=== PATIENT | female | born 1975 ===

== ENCOUNTER 2018-11-23 21:00 | Outpatient (CLI) | payer OTHER ==
[2018-11-23 21:37] VITALS: BP 116/65
[2018-11-23 22:24] LABS: Basophils % (Auto) 0.3 % (0.0-1.8); Eosinophils # (Auto) 0.5 K/mm3 (0.0-0.4); Eosinophils % (Auto) 3.7 % (0.0-4.3); Hematocrit 30.7 % (30.3-42.9); Lymphocytes # (Auto) 2.6 K/mm3 (1.2-5.4); Lymphocytes % (Auto) 18.4 % (13.4-35.0); Mean Corpuscular HGB Conc 32 % (30-34); Mean Corpuscular Volume 74 fl (79-97); Monocytes # (Auto) 1.2 K/mm3 (0.0-0.8); Monocytes % (Auto) 8.2 % (0.0-7.3); Platelet Count 340 K/mm3 (140-440); Red Blood Count 4.16 M/mm3 (3.65-5.03); Red Cell Distribution Width 17.2 % (13.2-15.2)
[2018-11-23 23:08] LABS: Bacteria,Urine 1+ /HPF (Negative); Bilirubin,Urine NEG (Negative); Blood,Urine NEG (Negative); Calcium Oxalate Crystals,Urine 3+; Color,Urine Yellow (Yellow); Mucus,Urine 1+ /HPF; Protein,Urine <15 mg/dL mg/dL (Negative); Urobilinogen,Urine < 2.0 mg/dL (<2.0)
== END 2018-11-23 22:30 | disposition home or self-care (01) ==
LOC: TRG 21:00
PROVIDERS: ATTEND Obstetrics & Gynecology
DX: O26.892 Other specified pregnancy related conditions, second trimester (principal); R10.12 Left upper quadrant pain; R10.9 Unspecified abdominal pain; Z3A.26 26 weeks gestation of pregnancy
CPT/HCPCS: 36415; 81001; 85025

== ENCOUNTER 2019-01-22 00:04 | Outpatient (CLI) | payer SELFPAY ==
[2019-01-22 00:54] VITALS: BP 101/62
--- NOTE | 2019-01-22 02:26 | Ultrasound Report ---
US OB BPP wo non-stress INDICATION: Decreased movements. History of fall. COMPARISON: None available. FINDINGS: A single live intrauterine is seen with a heart rate of 150 bpm. The biophysical profile sc ore is 8/8. IMPRESSION: Single live intrauterine with BPP of 8/8. Signer Name: Mat Lopez MD Signed: 01/22/2019 2:22 AM Workstation Name: [id number]
== END 2019-01-22 02:52 | disposition home or self-care (01) ==
LOC: TRG 00:04
PROVIDERS: ATTEND Obstetrics & Gynecology
DX: O47.03 False labor before 37 completed weeks of gestation, third trimester (principal); Z3A.35 35 weeks gestation of pregnancy
CPT/HCPCS: 59025; 76819

== ENCOUNTER 2019-02-12 09:17 | Inpatient (IN) | payer OTHER ==
[2019-02-12] MEDS ORDERED: BICITRA PO ONE (09:40)
[2019-02-12] MEDS ORDERED: REGLAN IV ONE (09:40)
[2019-02-12] MEDS ORDERED: PEPCID IV ONE (09:40)
[2019-02-12] MEDS ORDERED: LACTATED RINGERS 1,000 ML IV SCH (10:00)
[2019-02-12] MEDS ORDERED: ANCEF/STERILE WATER 2 GM/20 ML 2 GM/20 ML SYRINGE IV NR (10:00)
[2019-02-12] MEDS ORDERED: PITOCin/NS 20 UNIT/1000ML DRIP 20 UNITS/1,000 ML BAG IV SCH ×2 (10:00→14:00)
[2019-02-12 10:40] LABS: Basophils # (Auto) 0.1 K/mm3 (0.0-0.1); Basophils % (Auto) 0.8 % (0.0-1.8); Eosinophils # (Auto) 0.7 K/mm3 (0.0-0.4); Eosinophils % (Auto) 7.7 % (0.0-4.3); Hematocrit 38.8 % (30.3-42.9); Hemoglobin 12.7 gm/dl (10.1-14.3); Lymphocytes % (Auto) 21.2 % (13.4-35.0); Mean Corpuscular HGB Conc 33 % (30-34); Mean Corpuscular Volume 77 fl (79-97); Monocytes # (Auto) 0.7 K/mm3 (0.0-0.8); Monocytes % (Auto) 7.6 % (0.0-7.3); Platelet Count 282 K/mm3 (140-440); Red Blood Count 5.07 M/mm3 (3.65-5.03)
[2019-02-12] MEDS ORDERED: DEXMEDETOMIDINE IV ONE (11:04)
[2019-02-12] MEDS ORDERED: MARCAINE 0.5% INFILTRATI ONE (11:04)
--- NOTE | 2019-02-12 11:04 | Anesthesia Consultation ---
Anesthesia Consult and Med Hx Date of service: 02/12/19 - Airway Anesthetic Teeth Evaluation: Good ROM Head & Neck: Adequate Mental/Hyoid Distance: Adequate Mallampati Class: Class II Intubation Access Assessment: Probably Good - Pulmonary Exam CTA: Yes - Cardiac Exam Cardiac Exam: RRR - Pre-Operative Health Status ASA Pre-Surgery Classification: ASA3 Proposed Anesthetic Plan: Spinal - Pulmonary Hx Asthma: No - Cardiovascular System Hx Hypertension: No - Central Nervous System Hx Seizures: No Hx Psychiatric Problems: No - Endocrine Hx Renal Disease: No Hx Insulin Dependent Diabetes: No Hx Non-Insulin Dependent Diabetes: Yes Hx Hypothyroidism: No Hx Hyperthyroidism: No - Hematic Hx Anemia: No Hx Sickle Cell Disease: No - Other Systems Hx Alcohol Use: No Hx Obesity: Yes
--- NOTE | 2019-02-12 11:05 | Anesthesia Day of Surgery ---
Anesthesia Day of Surgery - Day of Surgery Patient Examined: Yes Patient H&P Reviewed: Yes Patient is NPO: Yes
[2019-02-12] MEDS ORDERED: D5LR 1,000 ML IV ONE (11:34)
--- NOTE | 2019-02-12 11:52 | History and Physical Report ---
History of Present Illness Date of examination: 02/12/19 Date of admission: 02/12/19 09:17 Chief complaint: Here for a primary delivery for breech and macrosomia, History of present illness: Term emilia , diabetic, breech and macrosomia. EFRIAN 02/26/2019. Past History Past Medical History: diabetes - Obstetrical History Expected Date of Delivery: 02/26/19 Actual Gestation: 38 Week(s) 0 Day(s) : 4 Para: 3 Medications and Allergies Allergies Allergy/AdvReac Type Severity Reaction Status Date / Time No Known Allergies Allergy Verified 02/12/19 09:40 Home Medications Medication Instructions Recorded Confirmed Last Taken Type Multivitamin Tablet 11/23/18 11/23/18 10:00 History 1 Active Meds: Active Medications Cefazolin Sodium (Ancef/Sterile Water 2 Gm/20 Ml) 2 gm in 20 mls @ 80 mls/hr IV PREOP NR; Protocol Stop: 02/12/19 23:00 Oxytocin/Sodium Chloride (Pitocin/Ns 20 Unit/1000ml Drip) 20 units in 1,000 mls @ 0 mls/hr IV TITR MELODY Lactated Ringer's (Lactated Ringers) 1,000 mls @ 2,250 mls/hr IV PREOP MELODY Stop: 02/13/19 10:27 Dextrose/Lactated Ringer's (D5lr) 1,000 mls @ 125 mls/hr IV DIRECT MELODY Review of Systems All systems: negative - Vital Signs Vital signs: Vital Signs Pulse BP 70 132/87 02/12/19 10:32 02/12/19 10:32 Temp Pulse Resp BP Pulse Ox 70 132/87 02/12/19 10:32 02/12/19 10:32 - Physical Exam Breasts: Positive: deferred Cardiovascular: Regular rate Lungs: Positive: Clear to auscultation Abdomen: Positive: soft. Negative: tenderness - Obstetrical FHR: category 1 Results Result Diagrams: 02/12/19 Unknown Abnormal lab results 02/12/19 Range/Units Unknown RBC 5.07 H (3.65-5.03) M/mm3 MCV 77 L (79-97) fl MCH 25 L (28-32) pg RDW 23.0 H (13.2-15.2) % [place] % (Auto) 7.6 H (0.0-7.3) % Eos % (Auto) 7.7 H (0.0-4.3) % Eos # 0.7 H (0.0-0.4) K/mm3 All other labs normal. Assessment and Plan - Patient Problems (1) Term Current Visit: Yes Status: Acute (2) Gestational diabetes Current Visit: Yes Status: Acute (3) Breech presentation Current Visit: Yes Status: Acute (4) Macrosomia Current Visit: Yes Status: Acute Plan to address problem: For delivery.
[2019-02-12] MEDS ORDERED: D5LR 1,000 ML IV SCH (12:00)
[2019-02-12] MEDS ORDERED: NACL 0.9% IR ONE (12:10)
[2019-02-12] MEDS ORDERED: WATER FOR IRRIG STERILE IR ONE (12:10)
[2019-02-12] MEDS ORDERED: LACTATED RINGERS 1,000 ML ONE (13:11)
[2019-02-12] MEDS ORDERED: NEO SYNEPHRINE ONE ×2 (13:11)
[2019-02-12] MEDS ORDERED: ZOFRAN ONE (13:11)
[2019-02-12] MEDS ORDERED: ZOFRAN IV PRN (13:40)
[2019-02-12] MEDS ORDERED: LANSINOH TP PRN (13:40)
[2019-02-12] MEDS ORDERED: TYLENOL PO PRN (13:40)
[2019-02-12] MEDS ORDERED: TUCKS PAD TP PRN (13:40)
[2019-02-12] MEDS ORDERED: NARCAN 0.4 MG/1 ML IV PRN (13:40)
--- NOTE | 2019-02-12 13:55 | Operative Report ---
Operative Report Operative Report: Date of surgery: 02/12/2019 Admitting diagnosis: 38 weeks gestation, breech presentation, macrosomia, polyhydramnios. Post operative diagnoses: The same plus anterior placenta previa Procedure: Low segment transverse section Surgeon: C.C.MD Trey Captain [employer]: Deanna Paez CRNA Anesthesia: Spinal block EBL: 1500 mL Complications: None Findings: There was a live baby girl in complete breech. Weight 8 lbs. 13 oz. Apgars 7/8. The placenta was anterior and extended inferior to the uterine incision. There was a copious amount of amniotic fluid which was clear. There was a nuchal cord. Both ovaries and fallopian tubes as well as the uterus were unremarkable and grossly normal structures the greater omentum seen through the Pfannenstiel incision was grossly normal Procedure in detail: The patient was taken to the operating room and given spinal block. She was placed in the straight supine position with a slight left lateral tilt. An indwelling Dc catheter was inserted. The patient was prepped and the abdomen. The drapes were placed. A timeout was done. With the go ahead from the wood casket maker, a Pfannenstiel incision was made. Fascia was divided transversely. The recti abdominis muscle flaps with stripped from the fascia using blunt and sharp dissections. The muscles were in the midline to reach the anterior parietal peritoneum. This was divided. The abdominal access was widened stretching. The bladder blade was applied. The utero vesicle peritoneal flap was divided transversely allowing the bladder to be displaced caudally. The uterine incision was placed over the lower segment transversely. The substance of the placenta was encountered upon entrance into the uterine cavity. The amniotic sac was ruptured with copious clear fluid. The feet of the fetus were identified and brought out through the incision. The ankles were wrapped in blue towels and used for traction to pull the baby out in combination with fundal pressure. After delivering the baby up to the waist line and pelvic girdle was then used for traction to deliver the abdomen and chest up to the shoulder blades. The Loveset maneuver used to deliver the arms. The fetus was then grasped at the ankles and put in an upside down position and continuing fundal pressure delivered the head of the baby through the incision. It was a difficult extraction. The airways were bulb suctioned beginning with the mouth. The umbilical cord was double clamped and divided. The baby was safely transferred to the pediatric team. The placenta was manually removed from the uterine cavity. The uterine cavity was explored and was empty of any placental remnants. The uterine incision was repaired in 3 layers with #1 Vicryl. Hemostasis within the pelvis was excellent. Blood and clots were cleared from the peritoneal cavity before repair in the anterior parietal peritoneum was #1 Vicryl. The fascia was repaired with #1 Vicryl. The Bovie was used to achieve hemostasis within the subcutaneous layer before closing the skin subcuticularly with 4-0 Vicryl. There were no complications. The estimated blood loss was 1500 mL most of which was amniotic fluid. All sponge and instruments counts were correct. The patient tolerated the procedure well and was transferred in very good condition to the recovery room.
[2019-02-12] MEDS ORDERED: SODIUM CHLORIDE FLUSH SYRINGE 10 ML IV SCH (14:00)
[2019-02-12] MEDS ORDERED: NUBAIN IV PRN (14:15)
--- NOTE | 2019-02-12 14:15 | Post Anesthesia Evaluation ---
- Post Anesthesia Evaluation Patient Participated: Yes Airway Patent: Yes Stable Respiratory Function: Yes Nausea/Vomiting: No Temp > 96.8F: Yes Pain Manageable: Yes Adequeate Hydration: Yes Anesthesia Complications: No Block Receding Appropriately: Yes
[2019-02-12] MEDS ORDERED: IBUPROFEN PO SCH (15:00)
[2019-02-12] MEDS ORDERED: TYLENOL PO SCH (15:00)
[2019-02-12] MEDS: TORADOL IV PRN (19:43)
[2019-02-12] MEDS: ANCEF/NS 1 GM/50 ML 1 GM/50 ML BAG IV SCH (21:35)
[2019-02-12] MEDS: MORPHINE IV PRN (23:55)
[2019-02-13] MEDS: TORADOL IV PRN (01:39)
[2019-02-13 02:23] LABS: Hemoglobin 10.8 gm/dl (10.1-14.3)
[2019-02-13] MEDS: ANCEF/NS 1 GM/50 ML 1 GM/50 ML BAG IV SCH (05:20)
[2019-02-13] MEDS: MORPHINE IV PRN (07:11)
[2019-02-13] MEDS: NORCO 5/325 PO PRN ×2 (09:53→22:07)
[2019-02-13] MEDS: IBUPROFEN PO PRN ×2 (09:54→16:19)
[2019-02-13] MEDS: PRENATAL VITAMIN PO SCH (09:54)
[2019-02-13] MEDS: FEOSOL PO SCH (09:54)
--- NOTE | 2019-02-13 17:23 | Progress Note ---
Assessment and Plan A: /postop day 1 S/P primary low transverse section. Anemia secondary to and blood loss. P: Encouraged patient to ambulate. Continue iron supplementation. Subjective - Subjective Date of service: 02/13/19 Principal diagnosis: /postop day 1 S/P primary low transverse section Interval history: /postop day 1 S/P primary low transverse section. Doing well. Passing gas. Voiding without difficulty. Tolerating a regular diet. Ambulating well. Patient denies headache, cough, shortness of breath, chest pain, leg pain, or vaginal bleeding. Patient reports: appetite normal, voiding normally, pain well controlled, flatus, ambulating normally, no dizzy ambulation, no nauseated : doing well Objective - Vital Signs Latest vital signs: Vital Signs Temp Pulse Resp BP Pulse Ox 02/13/19 16:08 99.6 F 75 18 115/69 97 02/13/19 07:30 98.3 F 18 125/71 02/13/19 05:00 98.1 F 80 18 122/72 96 02/13/19 01:39 18 02/12/19 23:53 98.5 F 77 16 122/73 96 02/12/19 21:49 98.1 F 79 16 115/63 96 Intake and Output 02/13/19 02/13/19 02/13/19 07:59 15:59 23:59 Intake Total 120 380 Output Total 600 Balance -480 380 Intake: Oral 380 Intake, Free Water 120 Output: Urine 600 Indwelling Catheter 600 Other: Total, Intake Amount 380 Total, Output Amount 600 # Voids Indwelling Catheter 3 - Exam Cardiovascular: Present: Regular rate, Normal S1, Normal S2, No murmurs Lungs: Present: Clear to auscultation Abdomen: Present: normal appearance, soft, normal bowel sounds. Absent: distention, tenderness, guarding, rigidity Uterus: Present: normal, firm, fundal height below umbilicus. Absent: bogginess, tenderness Extremities: Present: normal. Absent: tenderness, edema Incision: Present: normal, dry, intact, dressed
[2019-02-14] MEDS: IBUPROFEN PO PRN ×2 (02:41→12:57)
[2019-02-14] MEDS: PRENATAL VITAMIN PO SCH (12:57)
[2019-02-14] MEDS: FEOSOL PO SCH (12:57)
[2019-02-14] MEDS: NORCO 5/325 PO PRN ×2 (12:58→21:22)
--- NOTE | 2019-02-14 19:53 | Progress Note ---
Assessment and Plan A: day 2 S/P primary low transverse section. Anemia secondary to and blood loss. P: Continue iron supplementation. Continue ambulation. Subjective - Subjective Date of service: 02/14/19 Principal diagnosis: /postop day 2 S/P primary low transverse section Interval history: /postop day 2 S/P primary low transverse section. Doing well. Passing gas. Voiding without difficulty. Tolerating a regular diet. Ambulating well. Patient denies headache, cough, shortness of breath, chest pain, leg pain, or vaginal bleeding. Patient reports: appetite normal, voiding normally, pain well controlled, flatus, ambulating normally, no dizzy ambulation, no nauseated Stephan: doing well Objective - Vital Signs Latest vital signs: Vital Signs Temp Pulse Resp BP BP Pulse Ox 02/14/19 16:15 97.7 F 72 18 123/47 02/14/19 12:58 20 02/14/19 12:57 18 02/14/19 09:32 98.2 F 73 16 119/76 97 02/14/19 00:00 98.4 F 71 18 112/72 Intake and Output 02/14/19 02/14/19 02/14/19 07:59 15:59 23:59 Intake Total 200 440 Balance 200 440 Intake: Oral 200 440 Other: Total, Intake Amount 200 120 # Voids Void 2 - Exam Cardiovascular: Present: Regular rate, Normal S1, Normal S2 Lungs: Present: Clear to auscultation Abdomen: Present: normal appearance, soft. Absent: distention, tenderness, guarding, rigidity Uterus: Present: normal, firm, fundal height below umbilicus. Absent: bogginess, tenderness Extremities: Present: normal. Absent: tenderness, edema Incision: Present: normal, dry, intact, dressed
[2019-02-15] MEDS: NORCO 5/325 PO PRN (04:20)
[2019-02-15] MEDS: FEOSOL PO SCH (08:29)
[2019-02-15] MEDS: IBUPROFEN PO PRN (08:30)
[2019-02-15] MEDS: PRENATAL VITAMIN PO SCH (08:30)
[2019-02-15 10:22] VITALS: BP 128/77
--- NOTE | 2019-02-15 10:26 | Progress Note ---
Assessment and Plan - Patient Problems (1) S/P primary low transverse Current Visit: Yes Status: Acute Plan to address problem: POD 3 - stable Discharge to home today Follow up at [facility] as needed or in 1 week for incision check (2) Gestational diabetes Current Visit: Yes Status: Acute Qualifiers: Trimester: third trimester Plan to address problem: Blood glucose controlled Subjective - Subjective Date of service: 02/15/19 Principal diagnosis: POD #3; s/p Primary LTCS Interval history: see H&P, Operative Report, PP/DIRECTOR OF ENGINEERING Progress Notes Patient reports: appetite normal, voiding normally, pain well controlled, flatus, bowel movement, ambulating normally, no dizzy ambulation : doing well Objective - Vital Signs Latest vital signs: Vital Signs Temp Pulse Resp BP BP Pulse Ox 02/15/19 10:07 97.9 F 81 18 128/77 97 02/15/19 05:20 18 02/15/19 04:20 18 02/15/19 00:33 97.8 F 76 16 121/69 96 02/14/19 22:22 18 02/14/19 21:22 18 02/14/19 16:15 97.7 F 72 18 123/47 02/14/19 12:58 20 02/14/19 12:57 18 Intake and Output 02/14/19 02/15/19 02/15/19 23:59 07:59 15:59 Intake Total 440 Balance 440 Intake: Oral 440 Other: Total, Intake Amount 120 # Voids Void 2 3 - Exam Cardiovascular: Present: Regular rate Lungs: Present: Clear to auscultation Abdomen: Present: normal appearance, soft Vulva: both: normal Uterus: Present: normal, firm, fundal height below umbilicus Extremities: Present: normal Incision: Present: normal, dry, intact, other (steri strips in place) Comments: scant lochia
--- NOTE | 2019-02-15 10:32 | Discharge Summary ---
Providers - Providers Date of Admission: 02/12/19 09:17 Date of discharge: 02/15/19 Attending physician: HOLDEN NAVAS MD Primary care physician: HOLDEN NAVAS MD Hospitalization Reason for admission: section, IUP at term Delivery: Procedure: primary low transverse Episiotomy: none Laceration: none Incision: normal, dry, intact, other (steri strips in place) Other procedures: none complications: none Discharge diagnosis: IUP at term delivered [place] baby: female Hospital course: Uncomplicated Condition at discharge: Stable Disposition: DC-01 TO HOME OR SELFCARE - Discharge Diagnoses (1) S/P primary low transverse Status: Acute (2) Gestational diabetes Status: Acute Qualifiers: Trimester: third trimester Plan - Discharge Medications Prescriptions: Ibuprofen [Motrin 800 MG tab] 800 mg PO Q6H PRN #30 tablet PRN Reason: Pain, Mild (1-3) HYDROcodone/APAP 10-325 [[place] 10/325] 1 - 2 each PO Q6HR PRN 7 Days #30 tablet PRN Reason: Pain - Provider Discharge Summary Activity: routine, no sex for 6 weeks, no heavy lifting 4 weeks, no strenuous exercise Diet: routine Instructions: routine Additional instructions: [] Smoking cessation referral if applicable(refer to patient education folder for contact #) [] Refer to [facility] Booklet Call your doctor immediately for: * Fever > 100.5 * Heavy vaginal bleeding ( >1 pad per hour) * Severe persistent headache * Shortness of breath * Reddened, hot, painful area to leg or breast * Drainage or odor from incision. * Keep incision clean and dry at all times and follow doctor's instructions regarding bathing/showering - Follow up plan Follow up: HOLDEN NAVAS MD [Primary Care Provider] - 7 Days (Follow up at [facility] as needed or in 1 week for incision check)
== END 2019-02-15 16:20 | disposition home or self-care (01) | DRG 787 ==
LOC: APU 09:17 → OB 15:46
PROVIDERS: ADMIT Obstetrics & Gynecology; ATTEND Obstetrics & Gynecology
PROC: 10D00Z1 Extraction of Products of Conception, Low, Open Approach (ICD-10-PCS; principal; 2019-02-12)
DX: O32.8XX0 Maternal care for other malpresentation of fetus, not applicable or unspecified (principal); O44.03 Complete placenta previa NOS or without hemorrhage, third trimester; O99.214 Obesity complicating childbirth; E66.9 Obesity, unspecified; O36.63X0 Maternal care for excessive fetal growth, third trimester, not applicable or unspecified; O24.429 Gestational diabetes mellitus in childbirth, unspecified control; O40.3XX0 Polyhydramnios, third trimester, not applicable or unspecified; O69.81X0 Labor and delivery complicated by cord around neck, without compression, not applicable or unspecified; O99.02 Anemia complicating childbirth; D64.9 Anemia, unspecified; Z3A.38 38 weeks gestation of pregnancy; Z37.0 Single live birth
CPT/HCPCS: 36415; 82962; 85014; 85018; 85025; 86850; 86900; 86901; G0378; A6250; J0690; J1885; J2270; J2370; J2405; J2590; J2765; J3490; J7120; J7121